=== PATIENT | female | born 1985 | race African-American/Black ===

== ENCOUNTER 2021-12-04 08:40 | Emergency (ER) | payer BC, MEDICAID ==
[~2021-12-04] VITALS: Ht 167.6 cm; Wt 118.0 kg
[~2021-12-04 08:40] MED LIST: ALBU6.7H15 INH; FLUT1DIS INH; PRED5TAB48 PO
[2021-12-04 09:17] LABS: BASOPHILS % 0.7 % (0.0-2.0); EOSINOPHILS % 3.3 % (0.0-5.0); HEMOGLOBIN. 14.2 g/dL (12.0-16.0); LYMPHOCYTES % 44.9 % (20.0-50.0); MEAN CORPUSCULAR HEMOGLOBIN 31.2 pg (28.0-32.0); MEAN CORPUSCULAR VOLUME 90.1 fL (81.0-99.0); MEAN PLATELET VOLUME 8.4 fl (7.4-10.4); MONOCYTES % 6.3 % (2.0-8.0); NEUTROPHILS % 44.8 % (40.0-76.0); PLATELET 223 x1000/uL (130-400); RED BLOOD CELL COUNT 4.55 mill/uL (4.2-5.4); RED CELL DISTRIBUTION WIDTH 13.6 % (11.6-14.6)
[2021-12-04 09:29] LABS: CLARITY URINE CLEAR (CLEAR); COLOR URINE YELLOW (YELLOW); KETONES URINE NEGATIVE (NEGATIVE); LEUKOCYTE ESTERASE URINE NEGATIVE (NEGATIVE); NITRITE URINE NEGATIVE (NEGATIVE); OCCULT BLOOD URINE NEGATIVE (NEGATIVE); PH URINE 7.5 (4.5-8.0); PROTEIN URINE NEGATIVE (NEGATIVE); UROBILINOGEN URINE 0.2 E.U./dL (0.2-1.0)
[2021-12-04] MEDS ORDERED: MORPHINE SULFATE 4 MG/ML CPJ (NOT FOR IM USE) IV ONE (09:30)
[2021-12-04] MEDS ORDERED: ONDANSETRON HCL 4MG/2ML INJ IV ONE ×2 (09:30→11:00)
[2021-12-04] MEDS ORDERED: SODIUM CHLORIDE 0.9% 1,000 ML IV ONE (09:30)
[2021-12-04 09:33] LABS: CHLORIDE 110 mEq/L (98-107)
[2021-12-04] MEDS ORDERED: IOHEXOL-300 100 ML BOTTLE ONE (10:51)
[2021-12-04] MEDS ORDERED: KETOROLAC 15MG/ML VIAL IV ONE (12:00)
[2021-12-04] MEDS ORDERED: HYDROCODONE/ACETAMINOPHEN 5/325MG TABLET PO ONE (12:00)
[2021-12-04] MEDS ORDERED: ONDA4TAB5 MT (12:28)
[2021-12-04 12:46] VITALS: BP 135/85
== END 2021-12-04 12:51 | disposition home or self-care (01) ==
LOC: ER 08:40
DX: R10.31 Right lower quadrant pain (principal); R11.10 Vomiting, unspecified; J45.909 Unspecified asthma, uncomplicated; Z20.822 Contact with and (suspected) exposure to COVID-19
CPT/HCPCS: 36415; 74177; 80053; 81003; 83690; 85025; 87426; 93005; 96361; 96374; 96375; 96376; 99285; J1885; J2270; J2405; J7030; Q9967

== ENCOUNTER 2022-09-22 17:45 | Emergency (ER) | payer BC ==
[~2022-09-22 17:45] MED LIST changes: +ONDA4TAB5 MT
[2022-09-23] MEDS ORDERED: TRAM50TA3 MT (12:55)
== END 2022-09-22 18:38 | disposition left against medical advice (07) ==
LOC: ER 17:45
DX: Z53.21 Procedure and treatment not carried out due to patient leaving prior to being seen by health care provider (principal)

== ENCOUNTER 2022-09-23 10:31 | Emergency (ER) | payer BC ==
[~2022-09-23] VITALS: Ht 170.2 cm; Wt 118.0 kg
[2022-09-23] MEDS ORDERED: ASPIRIN 81MG TABLET PO ONE (11:00)
[2022-09-23 11:23] LABS: BASOPHILS % 1.1 % (0.0-2.0); EOSINOPHILS % 5.8 % (0.0-5.0); HEMATOCRIT. 42.6 % (36.0-48.0); HEMOGLOBIN. 14.7 g/dL (12.0-16.0); LYMPHOCYTES % 48.2 % (20.0-50.0); MEAN CORPUSCULAR HEMOGLOBIN 31.4 pg (28.0-32.0); MEAN CORPUSCULAR VOLUME 90.8 fL (81.0-99.0); MEAN PLATELET VOLUME 8.5 fl (7.4-10.4); MONOCYTES % 5.2 % (2.0-8.0); NEUTROPHILS % 39.7 % (40.0-76.0); PLATELET 232 x1000/uL (130-400); RED BLOOD CELL COUNT 4.69 mill/uL (4.2-5.4); RED CELL DISTRIBUTION WIDTH 14.2 % (11.6-14.6)
[2022-09-23 11:31] LABS: CLARITY URINE CLEAR (CLEAR); COLOR URINE YELLOW (YELLOW); KETONES URINE NEGATIVE (NEGATIVE); LEUKOCYTE ESTERASE URINE NEGATIVE (NEGATIVE); NITRITE URINE NEGATIVE (NEGATIVE); OCCULT BLOOD URINE NEGATIVE (NEGATIVE); PH URINE 6.5 (4.5-8.0); PROTEIN URINE NEGATIVE (NEGATIVE); SPECIFIC GRAVITY URINE 1.012 (1.005-1.030); UROBILINOGEN URINE 0.2 E.U./dL (0.2-1.0)
[2022-09-23 11:32] LABS: CHLORIDE 111 mEq/L (98-107)
[2022-09-23] MEDS ORDERED: TRAM50TA3 MT (12:55)
[2022-09-23 13:55] VITALS: BP 131/76
== END 2022-09-23 13:59 | disposition home or self-care (01) ==
LOC: ER 10:31
DX: R07.89 Other chest pain (principal); M79.602 Pain in left arm; R53.1 Weakness; R51.9 Headache, unspecified; H02.402 Unspecified ptosis of left eyelid; R03.0 Elevated blood-pressure reading, without diagnosis of hypertension; D57.1 Sickle-cell disease without crisis
CPT/HCPCS: 36415; 70450; 71045; 80053; 81003; 81025; 83880; 84484; 85025; 93005; 99285; Z7610